=== PATIENT | female | born 1995 | race Caucasian/White ===

== ENCOUNTER → 2016-11-23 | Outpatient (CLI) | payer BC ==
[~2016-11-23] MED LIST: NKHM
== END | disposition home or self-care (01) ==
LOC: RAD 16:18
DX: J40 Bronchitis, not specified as acute or chronic (principal); R05 Cough

== ENCOUNTER → 2016-11-30 | Outpatient (CLI) | payer BC | END | disposition home or self-care (01) | LOC: CT 16:40 | DX: R07.89 Other chest pain (principal); R06.02 Shortness of breath ==